=== PATIENT | female | born 1990 | race Caucasian/White ===

== ENCOUNTER 2019-02-20 11:45 | Emergency (ER) | payer BC, OTHER ==
[2019-02-20 11:48] VITALS: BP 116/78; PULSE 73; RESP 16; TEMP 97.4
[2019-02-20 13:05] LABS: Basophils # (A) 0.1 k/uL (0-0.2); Basophils % (A) 1 %; Eosinophils # (A) 0.7 k/uL (0-0.7); Eosinophils % (A) 9 %; HCT 41.6 % (34.0-46.0); Lymphocytes # (A) 3.2 k/uL (1.0-4.8); Lymphocytes % (A) 40 %; MCH 30.7 pg (25.0-35.0); MCHC 33.7 g/dL (31.0-37.0); MCV 91.1 fL (80.0-100.0); Mean Platelet Volume 8.5; Monocytes # (A) 0.3 k/uL (0-1.0); Monocytes % (A) 4 %; Neutrophils # (A) 3.6 k/uL (1.3-7.7); Neutrophils % (A) 44 %; Platelet Count 216 k/uL (150-450); RBC 4.57 m/uL (3.80-5.40); RDW 12.1 % (11.5-15.5)
[2019-02-20] MEDS ORDERED: FLUCONAZOLE 150 MG TAB PO STA (13:12)
[2019-02-20 13:24] LABS: ALT 20 U/L (4-34); AST 27 U/L (14-36); African American GFR (CKD) >90 (>60 ml/min/1.73 sqM); Albumin 4.4 g/dL (3.5-5.0); Alkaline Phosphatase 58 U/L (38-126); Anion Gap 8 mmol/L; Blood Urea Nitrogen 11 mg/dL (7-17); Calcium 9.8 mg/dL (8.4-10.2); Carbon Dioxide 27 mmol/L (22-30); Chloride 106 mmol/L (98-107); Glucose 72 mg/dL (74-99); Non-African American GFR(CKD) >90 (>60 ml/min/1.73 sqM); Potassium 4.2 mmol/L (3.5-5.1); Sodium 141 mmol/L (137-145); Total Bilirubin 0.4 mg/dL (0.2-1.3); Total Protein 7.3 g/dL (6.3-8.2)
--- NOTE | 2019-02-20 13:51 | US ---
EXAMINATION TYPE: Transabdominal DATE OF EXAM: 02/20/2019 1:30 PM COMPARISON: NONE CLINICAL HISTORY: pain. Spotting x 10 days, positive home test, 2, para 1 EXAM PERFORMED: Transabdominal (TA) EXAM MEASUREMENTS: GESTATIONAL AGE / DATING Physician Established: Not established yet Dates by LMP: (4 weeks/6 days) EDC: 10/24/2019 Dates by First Scan: This is 1st scan Dates by Current Scan for: No IUP seen at this time MATERNAL ANATOMY Uterus: 6.1 x 3.8 x 4.2cm, anteverted Right Ovary: 2.2 x 1.2 x 1.9cm Left Ovary: 2.4 x 1.6 x 2.3cm Post CDS / Adnexa: wnl Presence of free fluid: no Presence of corpus luteal cyst: not seen at this time Presence of subchorionic bleed: no GESTATION / SURVEY IUP: No IUP seen at this time Date of LMP: 01/17/2019 Beta HcG (if available): Not available at time of exam IMPRESSION: No intrauterine is identified. If the patient is beta hCG positive differential diagnosis w ould include normal too early to detect, missed , or ectopic . Correlate w ith serial beta hCG and pelvic ultrasound as clinically warranted.
--- NOTE | 2019-02-20 14:36 | ED ---
Female Urogenital HPI - General Chief complaint: Vaginal Bleeding Stated complaint: 5wks preg, bleeding Time Seen by Provider: 02/20/19 12:17 Source: patient Mode of arrival: ambulatory Limitations: no limitations - History of Present Illness Initial comments: 28-year-old female presents today for chief complaint of vaginal bleeding and Prevacid. Patient states she had a positive presents test on February 09. Patient states that her last menstrual period was01/23. Patient states she's been feeling okay no nausea vomiting denies cramping or pain. Patient states she has been spotting for quite some time and that's why she initially took a test she states is brown in nature. Patient states she had more bright red blood today again no pain no back pain and then presents emergency department for evaluation. Patient states she did have a UTI at the end of December. Patient denies any other complaints denies any heavy vaginal bleeding she states she has established OB care an appointment with Dr. Cordoba on March 15. Remaining review of systems negative upon arrival patient appears on the signs of acute distress. - Related Data Home Medications Medication Instructions Recorded Confirmed No Known Home Medications 09/26/13 09/26/13 Allergies Allergy/AdvReac Type Severity Reaction Status Date / Time No Known Allergies Allergy Verified 02/20/19 11:48 Review of Systems ROS Statement: Those systems with pertinent positive or pertinent negative responses have been documented in the HPI. ROS Other: All systems not noted in ROS Statement are negative. Past Medical History Past Medical History: No Reported History History of Any Multi-Drug Resistant Organisms: None Reported Past Surgical History: No Surgical Hx Reported Past Psychological History: No Psychological Hx Reported Smoking Status: Never smoker Past Alcohol Use History: Occasional Past Drug Use History: None Reported General Exam - General Exam Comments Initial Comments: General: The patient is awake and alert, in no distress, and does not appear acutely ill. Eye: +3 mm pupils are equal, round and reactive to light, extra-ocular movements are intact. No nystagmus. There is normal conjunctiva bilaterally. No signs of icterus. Ears, nose, mouth and throat: There are moist mucous membranes and no oral lesions. Neck: The neck is supple, there is no tenderness or JVD. Cardiovascular: There is a regular rate and rhythm. No murmur, rub or gallop is appreciated. Respiratory: Lungs are clear to auscultation, respirations are non-labored, breath sounds are equal. No wheezes, stridor, rales, or rhonchi. Gastrointestinal: Soft, non-distended, non-tender abdomen without masses or organomegaly noted. There is no rebound or guarding present. Pelvic exam normal female hair pattern. No external lesions. Vaginal mucosa pink well rugated small blood clots coming from the cervical small amount of blood in the vaginal vault dark red. No bright red blood. No cervical motion or adnexal tenderness. Musculoskeletal: Normal ROM, no tenderness. Strength 5/5. Sensation intact. Radial pulses equal bilaterally 2+. Neurological: A&O x 3. CN II-XII intact grossly, There are no obvious motor or sensory deficits. Coordination appears grossly intact. Speech is normal. Skin: Skin is warm and dry and no rashes or lesions are noted. Psychiatric: Cooperative, appropriate mood & affect, normal judgment. Limitations: no limitations Course Vital Signs 02/20/19 11:46 Temperature 97.4 F L Pulse Rate 73 Respiratory 16 Rate Blood Pressure 116/78 O2 Sat by Pulse 100 Oximetry Medical Decision Making - Medical Decision Making 28-year-old female presents today for chief complaint of vaginal bleeding and . Mild amount of painless bleeding. No adnexal tenderness on bimanual examination. Hemoglobin stable vital signs stable low hCG at 44. Ultrasound revealed no IUP discussed the frontal diagnoses including ectopic and strict return parameters I encouraged patient to have repeat serum hCG quantitative levels on Thursday and call her primary [employer]ATIVE INTERN to discuss visit today and schedule appropriate follow-up patient is agreeable to prescription for discharge at this time discussed case with any provider Dr. Coats is agreeable care plan - Lab Data Result diagrams: 02/20/19 12:40 02/20/19 12:40 Lab Results 02/20/19 02/20/19 02/20/19 Range/Units 12:40 12:40 12:40 WBC 8.0 (3.8-10.6) k/uL RBC 4.57 (3.80-5.40) m/uL Hgb 14.0 (11.4-16.0) gm/dL Hct 41.6 (34.0-46.0) % MCV 91.1 (80.0-100.0) fL MCH 30.7 (25.0-35.0) pg MCHC 33.7 (31.0-37.0) g/dL RDW 12.1 (11.5-15.5) % Plt Count 216 (150-450) k/uL Neutrophils % 44 % Lymphocytes % 40 % Monocytes % 4 % Eosinophils % 9 % Basophils % 1 % Neutrophils # 3.6 (1.3-7.7) k/uL Lymphocytes # 3.2 (1.0-4.8) k/uL Monocytes # 0.3 (0-1.0) k/uL Eosinophils # 0.7 (0-0.7) k/uL Basophils # 0.1 (0-0.2) k/uL Sodium 141 (137-145) mmol/L Potassium 4.2 (3.5-5.1) mmol/L Chloride 106 (98-107) mmol/L Carbon Dioxide 27 (22-30) mmol/L Anion Gap 8 mmol/L BUN 11 (7-17) mg/dL Creatinine 0.57 (0.52-1.04) mg/dL Est GFR (CKD-EPI)AfAm >90 (>60 ml/min/1.73 sqM) Est GFR (CKD-EPI)NonAf >90 (>60 ml/min/1.73 sqM) Glucose 72 L (74-99) mg/dL Calcium 9.8 (8.4-10.2) mg/dL Total Bilirubin 0.4 (0.2-1.3) mg/dL AST 27 (14-36) U/L ALT 20 (4-34) U/L Alkaline Phosphatase 58 (38-126) U/L Total Protein 7.3 (6.3-8.2) g/dL Albumin 4.4 (3.5-5.0) g/dL HCG, Quant mIU/mL Urine HCG, Qual (Not Detectd) Trichomonas Ag (Rapid) (Negative) Blood Type A Positive Blood Type Recheck No Previous Record Bld Type Recheck Status [facility] ONLY 02/20/19 02/20/19 02/20/19 Range/Units 12:40 13:40 14:40 WBC (3.8-10.6) k/uL RBC (3.80-5.40) m/uL Hgb (11.4-16.0) gm/dL Hct (34.0-46.0) % MCV (80.0-100.0) fL MCH (25.0-35.0) pg MCHC (31.0-37.0) g/dL RDW (11.5-15.5) % Plt Count (150-450) k/uL Neutrophils % % Lymphocytes % % Monocytes % % Eosinophils % % Basophils % % Neutrophils # (1.3-7.7) k/uL Lymphocytes # (1.0-4.8) k/uL Monocytes # (0-1.0) k/uL Eosinophils # (0-0.7) k/uL Basophils # (0-0.2) k/uL Sodium (137-145) mmol/L Potassium (3.5-5.1) mmol/L Chloride (98-107) mmol/L Carbon Dioxide (22-30) mmol/L Anion Gap mmol/L BUN (7-17) mg/dL Creatinine (0.52-1.04) mg/dL Est GFR (CKD-EPI)AfAm (>60 ml/min/1.73 sqM) Est GFR (CKD-EPI)NonAf (>60 ml/min/1.73 sqM) Glucose (74-99) mg/dL Calcium (8.4-10.2) mg/dL Total Bilirubin (0.2-1.3) mg/dL AST (14-36) U/L ALT (4-34) U/L Alkaline Phosphatase (38-126) U/L Total Protein (6.3-8.2) g/dL Albumin (3.5-5.0) g/dL HCG, Quant 42.8 mIU/mL Urine HCG, Qual Not Detected (Not Detectd) Trichomonas Ag (Rapid) Negative (Negative) Blood Type Blood Type Recheck Bld Type Recheck Status Disposition Clinical Impression: Threatened miscarriage, Vaginal bleeding affecting early Disposition: HOME SELF-CARE Condition: Good Instructions (If sedation given, give patient instructions): Threatened Miscarriage (ED) Additional Instructions: Please use medication as discussed. Please follow-up with OBGYN in the next week. Repeat HCG in 2 days. IMMEDIATE RETURN FOR PELVIC PAIN, lightheadedness. Please return to emergency room if the symptoms increase or worsen or for any other concerns. Is patient prescribed a controlled substance at d/c from ED?: No Referrals: Kay Villavicencio III, MD [Primary Care Provider] - 1-2 days Socorro Cordoba MD [STAFF PHYSICIAN] - 1-2 days Time of Disposition: 14:35
[2019-02-22 14:07] LABS: N. gonorrhoeae,PCR Negative (Neg,Equiv); Neisseria Source Vagina
[2019-02-22 14:08] LABS: C. trachomatis,PCR Negative (Neg,Equiv); Chlamydia trachomatis Source Vagina
== END 2019-02-20 14:58 | disposition home or self-care (01) ==
LOC: EC 11:45
DX: O20.0 Threatened abortion (principal); Z3A.01 Less than 8 weeks gestation of pregnancy
CPT/HCPCS: 36415; 76801; 80053; 81025; 84702; 85025; 86900; 86901; 87070; 87491; 87591; 87808; 99284

== ENCOUNTER → 2019-02-24 | Outpatient (CLI) | payer BC, OTHER | END | disposition home or self-care (01) | LOC: LABWHC1 13:04 | PROVIDERS: ATTEND Physician Assistant Medical | DX: O46.91 Antepartum hemorrhage, unspecified, first trimester (principal); Z3A.01 Less than 8 weeks gestation of pregnancy | CPT/HCPCS: 36415; 84702 ==

== ENCOUNTER → 2019-11-08 | Outpatient (CLI) | payer BC, OTHER ==
--- NOTE | 2019-11-09 10:28 | USB ---
Reason for exam: additional evaluation requested from abnormal screening. History: Family history of breast cancer in maternal aunt. Physical Findings: Nurse Summary: patient states right breast has been feeling heavier and more full for about 1 month or so, patient states right breast itchy at times for 1 month, slightly reddened right areola 10-11 o'clock position noted, per patient, she has had bilateral nipple discharge x 1 with expulsion per her OBGYN, denies any other nipple discharge, unsure of color (nurse ts). US Breast RT Right complete breast ultrasound includes all four quadrants, the retroareolar region and axilla. Finding demonstrates ducts seen at 4 o'clock, a 0.6 x 0.3 x 0.3cm lymph node at 9 o'clock, benign intramammary node, a 1.0 x 1.1 x 0.7cm lymph node at the axilla, prominent but nonenlarged benign appearing node in the axilla and duct ectasia at the posterior nipple. These results were verbally communicated with the patient and result sheet given to the patient on 11/08/19. ASSESSMENT: Benign, BI-RAD 2 RECOMMENDATION: Routine screening mammogram of both breasts at age 41. Unless clinical indication to start sooner. Manage on a clinical basis with regard to right nipple discharge. Suspicious discharge that would warrant further evaluation includes clear or bloody discharge localized to a single pore on the nipple. Clinical breast size asymmetry.
== END | disposition home or self-care (01) ==
LOC: RADUSWWP 14:59
PROVIDERS: ATTEND Obstetrics & Gynecology
DX: N64.4 Mastodynia (principal); N64.52 Nipple discharge; L53.8 Other specified erythematous conditions

== ENCOUNTER → 2020-07-11 | Outpatient (CLI) | payer BC, OTHER ==
[2020-07-12 03:20] LABS: HIV 2 AB Non-Reactive (Non-Reactive); HIV AB P24 Non-Reactive (Non-Reactive); HIV P24 AG Non-Reactive (Non-Reactive)
[2020-07-12 04:26] LABS: Follicle Stimulating Hormone 5.9 mIU/mL; Luteinizing Hormone 5.8 mIU/mL; Prolactin 9.6 ng/mL (2.8-29.2)
[2020-07-12 06:07] LABS: Hepatitis B Surface Antigen Non-Reactive (Non-Reactive); Hepatitis C IgG Antibody Non-Reactive (Non-Reactive)
[2020-07-13 10:55] LABS: Act Protein C Resist Interp Negative; Activated Protein C Resistance 2.91 (1.60-4.90)
== END | disposition home or self-care (01) ==
LOC: LABWHC1 15:00
PROVIDERS: ATTEND Obstetrics & Gynecology Reproductive Endocrinology
DX: Z11.4 Encounter for screening for human immunodeficiency virus [HIV] (principal); Z11.59 Encounter for screening for other viral diseases; Z13.0 Encounter for screening for diseases of the blood and blood-forming organs and certain disorders involving the immune mechanism; Z11.3 Encounter for screening for infections with a predominantly sexual mode of transmission; Z13.29 Encounter for screening for other suspected endocrine disorder
CPT/HCPCS: 36415; 82306; 82397; 83001; 83002; 84146; 84443; 85307; 86592; 86762; 86803; 87340; 87390

== ENCOUNTER → 2020-10-02 | Outpatient (CLI) | payer BC ==
[2020-10-02 19:45] LABS: Cardiolipin Ab IgG Interp NEGATIVE (NEGATIVE); Cardiolipin Ab IgM Interp NEGATIVE (NEGATIVE); Cardiolipin IgA Antibody <2.0 U/mL; Cardiolipin IgM Antibody <1.5 U/mL
[2020-10-03 12:05] LABS: Anti-Thrombin III Antigen 92 % (80 - 120)
[2020-10-03 12:12] LABS: APTT 41 Sec(s) (<43); Dilute Russell Viper Venom 39 Sec(s) (<44)
[2020-10-05 11:23] LABS: Protein C (Activity) 107 % (71-138)
[2020-10-05 11:24] LABS: Anti-Thrombin III Activity 108 % (79-109)
== END | disposition home or self-care (01) ==
LOC: LABWHC1 09:19
PROVIDERS: ATTEND Obstetrics & Gynecology Reproductive Endocrinology
DX: N96 Recurrent pregnancy loss (principal)
CPT/HCPCS: 36415; 81240; 81241; 81291; 83090; 85300; 85301; 85303; 85306; 85613; 85730; 86147

== ENCOUNTER → 2021-04-24 | Outpatient (CLI) | payer BC ==
[2021-04-24 20:58] LABS: Varicella zoster IgG Result 2.8 AI
== END | disposition home or self-care (01) ==
LOC: LABWHC1 11:29
PROVIDERS: ATTEND Obstetrics & Gynecology Reproductive Endocrinology
DX: Z01.84 Encounter for antibody response examination (principal); Z01.83 Encounter for blood typing
CPT/HCPCS: 36415; 86787; 86850; 86900; 86901

== ENCOUNTER 2022-03-24 02:35 | Inpatient (IN) | payer BC ==
[2022-03-24] MEDS ORDERED: LIDOCAINE 0.5% (PF) 5 MG/ML (50 ML SDV) SQ PRN (03:50)
[2022-03-24] MEDS ORDERED: TERBUTALINE 1 MG/ML VIAL SQ PRN (03:50)
[2022-03-24] MEDS ORDERED: BUTORPHANOL 1 MG/ML 1 ML VIAL IV PRN (04:04)
[2022-03-24 04:08] LABS: Basophils # (A) 0.1 k/uL (0-0.2); Basophils % (A) 1 %; Eosinophils # (A) 0.4 k/uL (0-0.7); Eosinophils % (A) 4 %; HCT 31.8 % (34.0-46.0); HGB 10.3 gm/dL (11.4-16.0); Lymphocytes # (A) 2.7 k/uL (1.0-4.8); Lymphocytes % (A) 24 %; MCH 28.4 pg (25.0-35.0); MCHC 32.5 g/dL (31.0-37.0); MCV 87.5 fL (80.0-100.0); Mean Platelet Volume 8.3; Monocytes # (A) 0.5 k/uL (0-1.0); Monocytes % (A) 4 %; Neutrophils # (A) 7.4 k/uL (1.3-7.7); Neutrophils % (A) 65 %; Platelet Count 262 k/uL (150-450); RBC 3.63 m/uL (3.80-5.40); RDW 14.5 % (11.5-15.5); WBC 11.4 k/uL (3.8-10.6)
[2022-03-24] MEDS: LACTATED RINGERS 1,000 ML IV SCH ×3 (04:15→10:15)
[2022-03-24] MEDS ORDERED: OXYTOCIN 30 UNITS/500 ML NS 30 UNIT in SALINE 1 500ML.BAG IV SCH ×2 (07:30→12:45)
--- NOTE | 2022-03-24 08:25 | P.HPOB ---
History of Present Illness H&P Date: 03/24/22 This is a 31-year-old 4 para 10-1 woman who is admitted at 39-3/7 weeks gestation with spontaneous rupture of membranes at approximately 1:30 AM. Upon presentation to labor and delivery triage rupture of membranes is confirmed although she is not actively parish. has been complicated by maternal coping infection in the third trimester. testing has been reassuring. Laboratory data: Blood type A+, antibody screen negative, rubella immune, VDRL nonreactive, hepatitis B surface antigen negative, HIV negative, gonorrhea and clinic cultures negative, glucose tolerance testing within normal limits, group B strep negative Obstetric history: Spontaneous miscarriage 2, vacuum assisted vaginal delivery at term in 2014. Review of Systems All systems: negative Past Medical History Past Medical History: No Reported History, Thyroid Disorder History of Any Multi-Drug Resistant Organisms: None Reported Past Surgical History: No Surgical Hx Reported Past Anesthesia/Blood Transfusion Reactions: No Reported Reaction Smoking Status: Never smoker - Past Family History Mother Family Medical History: Congestive Heart Failure (CHF) Father Family Medical History: Cancer Additional Family Medical History / Comment(s): throat cancer Medications and Allergies Home Medications Medication Instructions Recorded Confirmed Type Aspirin [Adult Low Dose Aspirin EC] 81 mg PO DAILY 03/24/22 03/24/22 History Levothyroxine Sodium [Synthroid] 25 mcg PO DAILY 03/24/22 03/24/22 History Vit No.179/Iron/Folic 1 tablet PO DAILY 03/24/22 03/24/22 History [ Tablet] Allergies Allergy/AdvReac Type Severity Reaction Status Date / Time No Known Allergies Allergy Verified 03/24/22 03:01 Exam Vital Signs Temp Pulse Resp BP Pulse Ox 03/24/22 03:40 98.0 F 89 16 139/78 100 03/24/22 02:58 98.8 F 82 16 116/72 99 Intake and Output 03/23/22 03/24/22 03/24/22 22:59 06:59 14:59 Other: # Voids 2 Weight 66.678 kg This is a comfortable, visibly gravid female in no acute distress. Targeted physical exam is performed. The abdomen is gravid, soft and nontender with size appropriate for gestational age. Estimated weight approximately 7 pounds. On pelvic examination the cervix is 5 cm dilated, 60% effaced and the vertex is in the -2 station. Clear fluid is noted. heart tones are category 1 and she is very irregularly parish. Results Result Diagrams: 03/24/22 03:55 Abnormal Lab Results - Last 24 Hours (Table) 03/24/22 Range/Units 03:55 WBC 11.4 H (3.8-10.6) k/uL RBC 3.63 L (3.80-5.40) m/uL Hgb 10.3 L (11.4-16.0) gm/dL Hct 31.8 L (34.0-46.0) % Assessment and Plan (1) Spontaneous rupture of membranes Current Visit: Yes Status: Acute Code(s): [id number] - SNOMED Code(s): 999893588 (2) 39 weeks gestation of Current Visit: Yes Status: Acute Code(s): Z3A.39 - 39 WEEKS GESTATION OF SNOMED Code(s): 44960372 Plan: 31-year-old 4 para 10-1 woman admitted at 39-3/7 weeks gestation with spontaneous rupture of membranes not in active labor. Pitocin augmentation was initiated. She is group B strep negative and Rh+. status is currently reassuring by external monitoring. She may receive an epidural anesthetic upon request for pain control. Anticipate normal spontaneous vaginal delivery. Time with Patient: Less than 30
[2022-03-24] MEDS ORDERED: SODIUM CHLORIDE 0.9% 100 ML BAG ONE (10:17)
[2022-03-24] MEDS ORDERED: fentaNYL (PF) 50 MCG/ML 5 ML AMP ONE (10:17)
[2022-03-24] MEDS ORDERED: ROPIVACAINE 5 MG/ML 20 ML AMPULE ONE (10:17)
[2022-03-24] MEDS ORDERED: diphenhydrAMINE 25 MG CAP PO PRN (12:38)
[2022-03-24] MEDS ORDERED: HYDROCORTISONE 2.5% RECTAL CREAM 30 GM TUBE RECTAL PRN (12:38)
[2022-03-24] MEDS ORDERED: diphenhydrAMINE 50 MG CAP PO PRN (12:38)
[2022-03-24] MEDS ORDERED: ACETAMINOPHEN TAB 325 MG TAB PO PRN (12:38)
[2022-03-24] MEDS ORDERED: BENZOCAINE/MENTHOL SPRAY 1 GM/SPRAY AEROSOL TOPICAL PRN (12:38)
[2022-03-24] MEDS ORDERED: SIMETHICONE 80 MG CHEWABLE PO PRN (12:38)
[2022-03-24] MEDS ORDERED: ZOLPIDEM 5 MG TAB PO PRN (12:38)
[2022-03-24] MEDS ORDERED: diphenhydrAMINE 50 MG/ML 1 ML VIAL IVP PRN ×2 (12:38)
[2022-03-24] MEDS ORDERED: IBUPROFEN 600 MG TAB PO PRN (12:38)
[2022-03-24] MEDS ORDERED: LANOLIN CREAM 5 GM TUBE TOPICAL PRN (12:38)
[2022-03-24] MEDS ORDERED: diphenhydrAMINE ELIXIR 25 MG/10 ML CUP PO PRN (12:38)
--- NOTE | 2022-03-24 12:38 | P.PROBDLV ---
Vaginal Delivery Note - . Vaginal Delivery Note: Lungs: Female in the vertex left occiput anterior position with Apgars of 9 at 1 minute and 9 at 5 minutes. Weight 7 lbs. 0 oz., 3175 g. Intact, three- vessel cord placenta. Thick meconium stained fluid terminal he. Second-degree midline episiotomy. EBL 200 mL's. Delivery summary: This is a 35-year-old 4 para 10-1 woman who presented at 39-3/7 weeks gestation with spontaneous rupture of membranes at approximately 1:30 AM. She presented in labor and delivery and rupture was confirmed. She was not in active labor. Following observation for several hours Pitocin augmentation was initiated. Upon presentation she was 5 cm dilated. She reached complete cervical dilation by approximately 11 AM and commenced pushing. She had an extremely dense epidural anesthetic. She pushed to [facility] the at which time she was repositioned, prepped and draped in the modified Amina position. A second-degree midline episiotomy was cut with the patient's verbal consent. The head then did deliver from the left occiput anterior position. This was followed easily by the anterior and posterior shoulders. There is a large amount of terminal meconium stained fluid. The rest of the was delivered onto the field and the nose and mouth were bulb suctioned. The was placed on the maternal abdomen. Eventually the cord was clamped and cut. The was taken to the warmer for further evaluation where Apgars were 9 at 1 minute and 9 at 5 minutes. The perineum was inspected and a second-degree laceration was noted. This was repaired with 3-0 Vicryl suture in the usual fashion. An intact, three-vessel cord placenta was delivered after an approximately 4 minute third stage of labor. The uterus was massaged and noted to be firm at the level of the umbilicus. The the patient received Pitocin following delivery of the placenta. The rest of the vagina and cervix were inspected and no further lacerations were noted. All counts were correct. Both mother and infant were doing well post delivery in the room.
[2022-03-24] MEDS: SENNOSIDES-DOCUSATE SODIUM 1 EACH TAB PO SCH (20:46)
[2022-03-24] MEDS ORDERED: ACETAMINOPHEN ORAL SUSP (PEDS) 3,840 MG/120 ML BOTTLE PO PRN (21:31)
[2022-03-24] MEDS ORDERED: IBUPROFEN ORAL SUSP 2,400 MG/120 ML BOTTLE PO PRN (22:03)
[2022-03-25 05:37] LABS: Basophils # (A) 0.1 k/uL (0-0.2); Basophils % (A) 0 %; Eosinophils # (A) 0.3 k/uL (0-0.7); Eosinophils % (A) 3 %; HCT 25.6 % (34.0-46.0); Lymphocytes # (A) 2.5 k/uL (1.0-4.8); Lymphocytes % (A) 23 %; MCHC 33.6 g/dL (31.0-37.0); MCV 86.4 fL (80.0-100.0); Mean Platelet Volume 8.8; Monocytes # (A) 0.3 k/uL (0-1.0); Monocytes % (A) 3 %; Neutrophils # (A) 7.5 k/uL (1.3-7.7); Neutrophils % (A) 69 %; Platelet Count 210 k/uL (150-450); RBC 2.96 m/uL (3.80-5.40); RDW 14.8 % (11.5-15.5); WBC 10.8 k/uL (3.8-10.6)
[2022-03-25 05:56] LABS: HGB 8.6 gm/dL (11.4-16.0)
[2022-03-25] MEDS: LACTATED RINGERS 1,000 ML IV SCH (08:28)
--- NOTE | 2022-03-25 12:14 | P.DS ---
Providers Date of admission: 03/24/22 02:57 Expected date of discharge: 03/25/22 Attending physician: Socorro Cordoba Primary care physician: Stated None - Discharge Diagnosis(es) (1) Spontaneous rupture of membranes Current Visit: Yes Status: Acute (2) 39 weeks gestation of Current Visit: Yes Status: Acute (3) Normal spontaneous vaginal delivery Current Visit: Yes Status: Acute (4) Perineal laceration with delivery, second degree Current Visit: Yes Status: Acute Hospital Course: This is a 31-year-old 4 now para 3 woman who was admitted at 39-3/7 weeks gestation with spontaneous rupture of membranes not in active labor. Following admission she eventually received Pitocin augmentation. She received an epidural anesthetic. She reached complete cervical dilation and had an approximately 1 hour 20 minutes second stage of labor to deliver a liveborn female infant over a second-degree midline episiotomy. Apgars were 9 at 1 minute and 9 at 5 minutes and weight was 7 lbs. 0 oz. Her course was unremarkable. By the evening of day 0 she was ambulating and voiding without difficulty. By day #1 she continued to do well. Her lochia was moderate but decreasing. Her pain was controlled with oral pain medications and she was tolerating a general diet. Her vital signs are stable. Her admission hemoglobin was 10.3 and day #1 hemoglobin was 8.6. She is hemodynamically stable with decreasing vaginal bleeding. She is deemed stable for discharge home with routine instructions for care and follow-up. Procedures: Normal spontaneous vaginal delivery Repair of midline episiotomy Patient Condition at Discharge: Good Plan - Discharge Summary New Discharge Prescriptions: Discontinued Aspirin [Adult Low Dose Aspirin EC] 81 mg PO DAILY Levothyroxine Sodium [Synthroid] 25 mcg PO DAILY No Action Vit No.179/Iron/Folic [ Tablet] 1 tablet PO DAILY Discharge Medication List Vit No.179/Iron/Folic [ Tablet] 1 tablet PO DAILY 03/24/22 [History] Follow up Appointment(s)/Referral(s): Socorro Cordoba MD [STAFF PHYSICIAN] - 6 Weeks Activity/Diet/Wound Care/Special Instructions: Follow-up in the office in 6 weeks . Call with any concerning signs or symptoms including heavy vaginal bleeding, severe abdominal pain, fever greater than 100.5, swelling or redness of the lower extremities, foul vaginal discharge, or signs of depression. May use [id number] Tylenol and/or ibuprofen as needed for pain and ice packs to the perineum as needed for pain and swelling. Continue vitamin. Nothing in the vagina for 6 weeks after delivery, specifically no intercourse. Discharge Disposition: HOME SELF-CARE
[2022-03-25 13:37] VITALS: BP 109/71; PULSE 95; RESP 16; TEMP 97.8
[2022-03-25] MEDS: SENNOSIDES-DOCUSATE SODIUM 1 EACH TAB PO SCH (14:25)
== END 2022-03-25 13:50 | disposition home or self-care (01) | DRG 807 ==
LOC: FBPOP 02:35 → 4FBP 02:57
PROVIDERS: ADMIT Obstetrics & Gynecology; ATTEND Obstetrics & Gynecology
PROC: 10E0XZZ Delivery of Products of Conception, External Approach (ICD-10-PCS; principal; 2022-03-24)
PROC: 0W8NXZZ Division of Female Perineum, External Approach (ICD-10-PCS; principal; 2022-03-24)
PROC: 0KQM0ZZ Repair Perineum Muscle, Open Approach (ICD-10-PCS; principal; 2022-03-24)
DX: O42.02 Full-term premature rupture of membranes, onset of labor within 24 hours of rupture (principal); O99.284 Endocrine, nutritional and metabolic diseases complicating childbirth; E07.9 Disorder of thyroid, unspecified; O77.0 Labor and delivery complicated by meconium in amniotic fluid; O70.1 Second degree perineal laceration during delivery; Z79.82 Long term (current) use of aspirin; Z79.890 Hormone replacement therapy; Z86.19 Personal history of other infectious and parasitic diseases; Z3A.39 39 weeks gestation of pregnancy; Z37.0 Single live birth
CPT/HCPCS: 59025; 84112; 85025; 86850; 86900; 86901; 99213

== ENCOUNTER 2023-11-19 22:44 | Observation (INO) | payer BC, OTHER ==
--- NOTE | 2023-11-19 22:59 | ED ---
Abdominal Pain HPI - General Stated Complaint: abd pain Time Seen by Provider: 11/19/23 22:46 Source: patient, EMS Mode of arrival: EMS Limitations: no limitations - History of Present Illness Initial Comments: This patient is a 33-year-old woman who presents to have evaluation of right lower quadrant abdominal pain. The patient states that she is seeing Dr. Jade currently. The patient was told she was suspected of having ectopic . She reportedly received shot of which she believes is methotrexate yesterday at [facility]. The patient was taking shower tonight and felt a pop in the right lower quadrant of the abdomen, had severe pain and she may have had syncopal episode. Patient's reportedly called EMS to transport the patient here. She also reports feeling lightheaded when she stood up. Patient denies vaginal bleeding. MD Complaint: abdominal pain -: hour(s) Location: RLQ Radiation: none Migration to: no migration Severity: moderate Quality: sharp, other (Popping sensation) Consistency: now resolved (partially) Improves With: nothing Worsens With: movement Associated Symptoms: denies other symptoms - Related Data Home Medications Medication Instructions Recorded Confirmed Vit No.179/Iron/Folic 1 tablet PO DAILY 03/24/22 03/24/22 [ Tablet] Previous Rx's Medication Instructions Recorded Acetaminophen Tab [Tylenol] 650 mg PO Q6H PRN #30 tab 11/21/23 Ibuprofen [Motrin] 600 mg PO Q6HR PRN #30 tab 11/21/23 Allergies Allergy/AdvReac Type Severity Reaction Status Date / Time No Known Allergies Allergy Verified 03/24/22 03:01 Review of Systems ROS Statement: Those systems with pertinent positive or pertinent negative responses have been documented in the HPI. ROS Other: All systems not noted in ROS Statement are negative. Constitutional: Denies: fever, chills, weakness Respiratory: Denies: cough, dyspnea Cardiovascular: Reports: as per HPI, syncope. Denies: chest pain, palpitations, edema Gastrointestinal: Reports: as per HPI, abdominal pain. Denies: nausea, vomiting, diarrhea, constipation Genitourinary: Denies: dysuria, frequency, hematuria, discharge, abnormal menses Musculoskeletal: Denies: back pain Skin: Denies: rash Neurological: Denies: headache, weakness, numbness Hematological/Lymphatic: Denies: easy bleeding Past Medical History Past Medical History: No Reported History, Thyroid Disorder History of Any Multi-Drug Resistant Organisms: None Reported Past Surgical History: No Surgical Hx Reported Past Anesthesia/Blood Transfusion Reactions: No Reported Reaction Smoking Status: Never smoker - Past Family History Mother Family Medical History: Congestive Heart Failure (CHF) Father Family Medical History: Cancer Additional Family Medical History / Comment(s): throat cancer General Exam General appearance: alert, in no apparent distress Head exam: Present: atraumatic, normocephalic Eye exam: Present: normal appearance. Absent: scleral icterus, conjunctival injection ENT exam: Present: normal oropharynx Neck exam: Present: normal inspection Respiratory exam: Present: normal lung sounds bilaterally. Absent: respiratory distress, wheezes, rales, rhonchi, stridor, accessory muscle use Cardiovascular Exam: Present: regular rate, normal rhythm, normal heart sounds. Absent: systolic murmur, diastolic murmur, rubs, gallop GI/Abdominal exam: Present: soft, tenderness (Right lower quadrant). Absent: distended, guarding, rebound, rigid, mass, pulsatile mass, hernia Extremities exam: Present: normal inspection, normal capillary refill. Absent: pedal edema, calf tenderness Back exam: Present: normal inspection. Absent: CVA tenderness (R), CVA tenderness (L) Neurological exam: Present: alert Skin exam: Present: warm, dry, intact, normal color. Absent: rash Course Vital Signs 11/19/23 11/20/23 11/20/23 22:51 00:04 00:52 Temperature 97.9 F Pulse Rate 83 83 91 Pulse Rate [ Pulse Oximetery ] Respiratory 19 18 18 Rate Blood Pressure 105/65 100/50 100/59 Blood Pressure [Right Arm] O2 Sat by Pulse 100 100 Oximetry 11/20/23 01:30 Temperature 97.7 F Pulse Rate Pulse Rate [ 92 Pulse Oximetery ] Respiratory 16 Rate Blood Pressure Blood Pressure 93/55 [Right Arm] O2 Sat by Pulse Oximetry Medical Decision Making - Medical Decision Making The patient had ultrasound of the pelvis that I interpreted to show cystic lesion of the ovary suggestive of ectopic and area of fluid collection significant suggestive of hemorrhage Was pt. sent in by a medical professional or institution (, PA, CLAIMS COLLECTOR, urgent care, hospital, or intermediate...) When possible be specific @ -[No] Did you speak to anyone other than the patient for history (EMS, parent, family, police, friend...)? What history was obtained from this source @ -[No] Did you review nursing and triage notes (agree or disagree)? Why? @ -[I reviewed and agree with nursing and triage notes] Were old charts reviewed (outside hosp., previous admission, EMS record, old EKG, old radiological studies, urgent care reports/EKG's, intermediate records)? Report findings @ -[No old charts were reviewed] Differential Diagnosis (chest pain, altered mental status, abdominal pain women, abdominal pain men, vaginal bleeding, weakness, fever, dyspnea, syncope, heada varun, dizziness, GI bleed, back pain, seizure, CVA, palpatations, mental health, musculoskeletal)? @ -[Differential Abdominal Pain Women: Appendicitis, Cholecystitis, diverticulosis, ischemic bowel, pancreatitis, hepatitis, UTI, gastroenteritis, AAA, incarcerated hernia, bowel obstruction, constipation, inflammatory bowel, hepatitis, peptic ulcer disease, splenic infarction, perforated viscus, vulvitis, ovarian torsion, PID, kidney stone, placenta abruption, this is not meant to be an all-inclusive list EKG interpreted by me (3pts min.). @ -[As above] X-rays interpreted by me (1pt min.). @ -[None done] CT interpreted by me (1pt min.). @ -[None done] U/S interpreted by me (1pt. min.). @ -[I interpreted as above What testing was considered but not performed or refused? (CT, X-rays, U/S, labs)? Why? @ -[None] What meds were considered but not given or refused? Why? @ -[None] Did you discuss the management of the patient with other professionals (professionals i.e. , PA, CLAIMS COLLECTOR, lab, RT, psych nurse, aids social worker, downstairs maid, teacher, community development officer, supervisor case loading)? Give summary @ -[Case discussed with admitting physician and treatment recommendations incorporated Was smoking cessation discussed for >3mins.? @ -[No] Was critical care preformed (if so, how long)? @ -[No] Were there social determinants of health that impacted care today? How? (Homelessness, low income, unemployed, alcoholism, drug addiction, transportation, low edu. Level, literacy, decrease access to med. care, penitentiary, rehab)? @ -[No] Was there de-escalation of care discussed even if they declined (Discuss DNR or withdrawal of care, Hospice)? DNR status @ -[No] What co-morbidities impacted this encounter? (DM, HTN, Smoking, COPD, CAD, Cancer, CVA, ARF, Chemo, Hep., AIDS, mental health diagnosis, sleep apnea, morbid obesity)? @ -[None] Was patient admitted / discharged? Hospital course, mention meds given and route, prescriptions, significant lab abnormalities, going to OR and other pertinent info. @ -[Patient is a 33-year-old woman here with ectopic after having received methotrexate injection. The patient having significant pain and there does appear to be some fluid in the pelvis. Patient will be admitted to gynecology service for serial hemoglobins and possibly serial ultrasound Undiagnosed new problem with uncertain prognosis? @ -[No] Drug Therapy requiring intensive monitoring for toxicity (Heparin, Nitro, Insulin, Cardizem)? @ -[No] Were any procedures done? @ -[No] Diagnosis/symptom? @ -[Acute ectopic Acute anemia Near syncopal episode Acute, or Chronic, or Acute on Chronic? @ -[Acute Uncomplicated (without systemic symptoms) or Complicated (systemic symptoms)? @ -[Complicated by near syncopal episode Side effects of treatment? @ -[No] Exacerbation, Progression, or Severe Exacerbation? @ -[No] Poses a threat to life or bodily function? How? (Chest pain, [place], [place], pneumonia, PE, COPD, DKA, ARF, appy, cholecystitis, CVA, Diverticulitis, Homicidal, Suicidal, threat to staff... and all critical care pts) @ -[Yes there is risk of significant hemorrhage/ - Lab Data Result diagrams: 11/21/23 05:50 11/19/23 23:03 Lab Results 11/19/23 11/19/23 11/19/23 Range/Units 23:03 23:03 23:03 WBC 8.5 (3.8-10.6) k/uL RBC 3.46 L (3.80-5.40) m/uL Hgb 10.7 L (11.4-16.0) gm/dL Hct 31.8 L (34.0-46.0) % MCV 91.9 (80.0-100.0) fL MCH 30.9 (25.0-35.0) pg MCHC 33.6 (31.0-37.0) g/dL RDW 12.3 (11.5-15.5) % Plt Count 199 (150-450) k/uL MPV 8.0 Neutrophils % 49 % Lymphocytes % 41 % Monocytes % 2 % Eosinophils % 4 % Basophils % 0 % Neutrophils # 4.2 (1.3-7.7) k/uL Lymphocytes # 3.5 (1.0-4.8) k/uL Monocytes # 0.2 (0-1.0) k/uL Eosinophils # 0.4 (0-0.7) k/uL Basophils # 0.0 (0-0.2) k/uL Sodium 134 L (137-145) mmol/L Potassium 4.8 (3.5-5.1) mmol/L Chloride 110 H (98-107) mmol/L Carbon Dioxide 22 (22-30) mmol/L Anion Gap 2 mmol/L BUN 17 (7-17) mg/dL Creatinine 0.46 L (0.52-1.04) mg/dL Est GFR (CKD-EPI)AfAm >90 (>60 ml/min/1.73 sqM) Est GFR (CKD-EPI)NonAf >90 (>60 ml/min/1.73 sqM) Glucose 110 H (74-99) mg/dL Plasma Lactic Acid Rico 1.0 (0.7-2.0) mmol/L Calcium 8.6 (8.4-10.2) mg/dL Total Bilirubin 0.4 (0.2-1.3) mg/dL AST 25 (14-36) U/L ALT 16 (4-34) U/L Alkaline Phosphatase 38 (38-126) U/L Total Protein 5.9 L (6.3-8.2) g/dL Albumin 3.6 (3.5-5.0) g/dL Amylase 50 (30-110) U/L Lipase 88 (23-300) U/L HCG, Quant 00285.4 mIU/mL Blood Type Blood Type Recheck Bld Type Recheck Status Antibody Screen Spec Expiration Date 11/19/23 Range/Units 23:03 WBC (3.8-10.6) k/uL RBC (3.80-5.40) m/uL Hgb (11.4-16.0) gm/dL Hct (34.0-46.0) % MCV (80.0-100.0) fL MCH (25.0-35.0) pg MCHC (31.0-37.0) g/dL RDW (11.5-15.5) % Plt Count (150-450) k/uL MPV Neutrophils % % Lymphocytes % % Monocytes % % Eosinophils % % Basophils % % Neutrophils # (1.3-7.7) k/uL Lymphocytes # (1.0-4.8) k/uL Monocytes # (0-1.0) k/uL Eosinophils # (0-0.7) k/uL Basophils # (0-0.2) k/uL Sodium (137-145) mmol/L Potassium (3.5-5.1) mmol/L Chloride (98-107) mmol/L Carbon Dioxide (22-30) mmol/L Anion Gap mmol/L BUN (7-17) mg/dL Creatinine (0.52-1.04) mg/dL Est GFR (CKD-EPI)AfAm (>60 ml/min/1.73 sqM) Est GFR (CKD-EPI)NonAf (>60 ml/min/1.73 sqM) Glucose (74-99) mg/dL Plasma Lactic Acid Rico (0.7-2.0) mmol/L Calcium (8.4-10.2) mg/dL Total Bilirubin (0.2-1.3) mg/dL AST (14-36) U/L ALT (4-34) U/L Alkaline Phosphatase (38-126) U/L Total Protein (6.3-8.2) g/dL Albumin (3.5-5.0) g/dL Amylase (30-110) U/L Lipase (23-300) U/L HCG, Quant mIU/mL Blood Type A Positive Blood Type Recheck A Pos Bld Type Recheck Status No Antibody Screen NEGATIVE Spec Expiration Date 11/22/20232302 Disposition Clinical Impression: Ectopic of right ovary, Anemia Disposition: ADMITTED IP TO THIS HOSP Condition: Fair Is patient prescribed a controlled substance at d/c from ED?: No
[2023-11-19 23:12] LABS: Basophils % (A) 0 %; Eosinophils # (A) 0.4 k/uL (0-0.7); Eosinophils % (A) 4 %; HCT 31.8 % (34.0-46.0); HGB 10.7 gm/dL (11.4-16.0); Lymphocytes # (A) 3.5 k/uL (1.0-4.8); Lymphocytes % (A) 41 %; MCH 30.9 pg (25.0-35.0); MCHC 33.6 g/dL (31.0-37.0); MCV 91.9 fL (80.0-100.0); Monocytes # (A) 0.2 k/uL (0-1.0); Monocytes % (A) 2 %; Neutrophils # (A) 4.2 k/uL (1.3-7.7); Neutrophils % (A) 49 %; Platelet Count 199 k/uL (150-450); RBC 3.46 m/uL (3.80-5.40); RDW 12.3 % (11.5-15.5); WBC 8.5 k/uL (3.8-10.6)
[2023-11-19 23:22] LABS: ALT 16 U/L (4-34); AST 25 U/L (14-36); African American GFR (CKD) >90 (>60 ml/min/1.73 sqM); Albumin 3.6 g/dL (3.5-5.0); Alkaline Phosphatase 38 U/L (38-126); Amylase 50 U/L (30-110); Anion Gap 2 mmol/L; Blood Urea Nitrogen 17 mg/dL (7-17); Calcium 8.6 mg/dL (8.4-10.2); Carbon Dioxide 22 mmol/L (22-30); Chloride 110 mmol/L (98-107); Glucose 110 mg/dL (74-99); Lipase 88 U/L (23-300); Non-African American GFR(CKD) >90 (>60 ml/min/1.73 sqM); Potassium 4.8 mmol/L (3.5-5.1); Sodium 134 mmol/L (137-145); Total Bilirubin 0.4 mg/dL (0.2-1.3); Total Protein 5.9 g/dL (6.3-8.2)
--- NOTE | 2023-11-20 00:01 | US ---
EXAM: US First Trimester , Transabdominal and Transvaginal CLINICAL HISTORY: suspected ectopic preg/RLQ pain TECHNIQUE: Real-time transabdominal and transvaginal obstetrical ultrasound of the maternal pelvis and a first trimester with image documentation. Transvaginal imaging was used for better evaluation of the fetus and adnexa. COMPARISON: No relevant prior studies available. FINDINGS: Gestation: No intrauterine gestation identified. Uterus/cervix: The uterus measures 9 x 4.6 x 5.7 cm. The endometrial stripe measures 7.7 mm. No abnormal vascular flow or fluid in the endometrial canal. There is a rounded heterogeneously hypoechoic structure involving the left aspect of the uterine body measuring 8 x 9 x 8 mm. No myometrial mass. Ovaries: The left ovary measures 3.7 x 3 x 2 cm. There is a dominant simple appearing cyst in the left ovary measuring 2.4 x 1.3 x 1.5 cm. No internal architecture identified. There is a heterogeneously hyperechoic mass in the right adnexa measuring 3.7 x 4.9 x 2.7 cm with prominent internal vascular flow. The adjacent right ovary measures 4.4 x 2.6 x 2. 8 cm. Free fluid: Mild free fluid in the pelvic cul-de-sac and adjacent to the right ovary. IMPRESSION: 1. No intrauterine gestation identified. 2. There is a heterogeneously hyperechoic mass in the right adnexa measuring 3.7 x 4.9 x 2.7 cm with prominent internal vascular flow. While no definitive gestational sac identified, findings are highly suspicious for ectopic gestation. 3. Mild free fluid in the pelvic cul-de-sac and adjacent to the right ovary.
[2023-11-20] MEDS ORDERED: NALOXONE 0.4 MG/ML 1 ML VIAL IV PRN (00:17)
[2023-11-20] MEDS ORDERED: ONDANSETRON 4 MG/2 ML VIAL IVP PRN (00:23)
[2023-11-20] MEDS: MORPHINE SULFATE 4 MG/ML SYRINGE IV PRN (00:46)
[2023-11-20] MEDS: SODIUM CHLORIDE 0.9% 1,000 ML IV SCH (00:48)
[2023-11-20 05:46] VITALS: RESP 16
[2023-11-20] MEDS: ACETAMINOPHEN IV (For NPO) 1,000 MG in EMPTY BAG 1 BAG IVPB ONE (06:05)
[2023-11-20 06:13] LABS: HGB 9.5 gm/dL (11.4-16.0); MCH 30.4 pg (25.0-35.0); MCHC 32.8 g/dL (31.0-37.0); MCV 92.8 fL (80.0-100.0); Mean Platelet Volume 8.5; Platelet Count 183 k/uL (150-450); RBC 3.13 m/uL (3.80-5.40); RDW 12.2 % (11.5-15.5); WBC 9.7 k/uL (3.8-10.6)
[2023-11-20] MEDS: KETOROLAC 15 MG/ML 1 ML VIAL IVP PRN (07:42)
--- NOTE | 2023-11-20 08:18 | P.HPOB ---
History of Present Illness H&P Date: 11/20/23 Chief Complaint: ectopic 33-year-old Presented to the emergency room with increased right lower quadrant pain. Patient has recently been treated with methotrexate for an ectopic . Her beta hCG was 36,000. Tumor markers were also drawn as this looks like a cyst within the ovary initially, those tumor markers were negative. Patient was given methotrexate on Thursday, November 17, 2023. She felt a pop last night and then an increased amount of right lower quadrant pain. She also had a presyncopal episode. She came to the ER and bhcg has gone down to 28,000. Hgb last night was 10.7 and now is 9.5. US showed the ectopic and another cyst on the right ovary as well as a cyst on the left. There was mild free fluid in the pelvis. It does not seem to have active bleeding. The patient is fine laying in bed and has discomfort with movement. We talked about how the methotrexate causes an increased amount of pain when it intially starts to work and we could still monitor conservatively. If there is too much pain with movement and she cannot tolerate, may need to perform laparotomy to remove the ectopic and possibly the right ovary. We discussed risks, benefits and alternatives and she and her understand. We will continue observation at this time and if there is an indication, will proceed with surgery. Review of Systems All systems: negative Constitutional: Denies chills, Denies fever Eyes: denies blurred vision, denies pain Ears, nose, mouth and throat: Denies headache, Denies sore throat Cardiovascular: Denies chest pain, Denies shortness of breath Respiratory: Denies cough Gastrointestinal: Reports abdominal pain, Denies diarrhea, Denies nausea, Denies vomiting Genitourinary: Denies dysuria, Denies hematuria Musculoskeletal: Denies myalgias Integumentary: Denies pruritus, Denies rash Neurological: Denies numbness, Denies weakness Psychiatric: Reports anxiety, Denies depression Endocrine: Denies fatigue, Denies weight change Past Medical History Past Medical History: No Reported History, Thyroid Disorder Additional Past Medical History / Comment(s): OB history: 2 vaginal deliveries, 2 miscarriages, hx of needing IVF to get with the second live . History of Any Multi-Drug Resistant Organisms: None Reported Past Surgical History: No Surgical Hx Reported Past Anesthesia/Blood Transfusion Reactions: No Reported Reaction Past Psychological History: No Psychological Hx Reported Smoking Status: Never smoker Past Alcohol Use History: Occasional Past Drug Use History: None Reported - Past Family History Mother Family Medical History: Congestive Heart Failure (CHF) Father Family Medical History: Cancer Additional Family Medical History / Comment(s): throat cancer Medications and Allergies Home Medications Medication Instructions Recorded Confirmed Type Vit No.179/Iron/Folic 1 tablet PO DAILY 03/24/22 03/24/22 History [ Tablet] Allergies Allergy/AdvReac Type Severity Reaction Status Date / Time No Known Allergies Allergy Verified 03/24/22 03:01 Exam Osteopathic Statement: *. No significant issues noted on an osteopathic structural exam other than those noted in the History and Physical/Consult. Vital Signs Temp Pulse Pulse Resp BP BP Pulse Ox 11/20/23 06:02 98.0 F 84 16 98/58 11/20/23 04:05 97.8 F 97 16 96/87 11/20/23 03:15 74 16 88/50 11/20/23 02:20 97 16 96/56 11/20/23 01:30 97.7 F 92 16 93/55 11/20/23 00:52 91 18 100/59 100 11/20/23 00:04 83 18 100/50 100 11/19/23 22:51 97.9 F 83 19 105/65 Intake and Output 11/19/23 11/20/23 11/20/23 22:59 06:59 14:59 Other: # Voids 1 Weight 56.699 kg 56.699 kg Heart: Regular rate and rhythm Lungs: Clear to auscultation bilaterally Abdomen: Soft, tenderness is limited to the right lower quadrant, no rebound or rigidity, no distention and no radiation of pain Extremities: Negative Homans sign Results Result Diagrams: 11/20/23 04:30 11/19/23 23:03 Abnormal Lab Results - Last 24 Hours (Table) 11/19/23 11/19/23 11/20/23 Range/Units 23:03 23:03 04:30 RBC 3.46 L 3.13 L (3.80-5.40) m/uL Hgb 10.7 L 9.5 L (11.4-16.0) gm/dL Hct 31.8 L 29.0 L (34.0-46.0) % Sodium 134 L (137-145) mmol/L Chloride 110 H (98-107) mmol/L Creatinine 0.46 L (0.52-1.04) mg/dL Glucose 110 H (74-99) mg/dL Total Protein 5.9 L (6.3-8.2) g/dL Assessment and Plan (1) Ectopic of right ovary Current Visit: Yes Status: Acute Code(s): O00.201 - RIGHT OVARIAN WITHOUT INTRAUTERINE SNOMED Code(s): 66287483666050384 Plan: 1. monitor pain and hgb
[2023-11-20 13:51] LABS: HCT 30.8 % (34.0-46.0); HGB 10.1 gm/dL (11.4-16.0); MCH 30.6 pg (25.0-35.0); MCHC 32.8 g/dL (31.0-37.0); MCV 93.5 fL (80.0-100.0); Mean Platelet Volume 7.8; Platelet Count 185 k/uL (150-450); RDW 12.3 % (11.5-15.5); WBC 6.6 k/uL (3.8-10.6)
[2023-11-20] MEDS ORDERED: ACETAMINOPHEN TAB 500 MG TAB PO PRN (14:06)
[2023-11-20] MEDS: IBUPROFEN 600 MG TAB PO PRN (14:32)
[2023-11-20] MEDS: HYDROmorphone 1 MG/ML 1 ML SYRINGE IVP STA (22:28)
[2023-11-21 01:25] VITALS: BP 99/63; PULSE 106; TEMP 97.7
[2023-11-21 06:23] LABS: Basophils % (A) 1 %; Eosinophils # (A) 0.5 k/uL (0-0.7); Eosinophils % (A) 7 %; HCT 27.4 % (34.0-46.0); HGB 9.3 gm/dL (11.4-16.0); Lymphocytes # (A) 2.9 k/uL (1.0-4.8); Lymphocytes % (A) 40 %; MCH 31.5 pg (25.0-35.0); MCHC 34.1 g/dL (31.0-37.0); MCV 92.3 fL (80.0-100.0); Mean Platelet Volume 8.7; Monocytes # (A) 0.2 k/uL (0-1.0); Monocytes % (A) 2 %; Neutrophils # (A) 3.5 k/uL (1.3-7.7); Neutrophils % (A) 49 %; Platelet Count 147 k/uL (150-450); RBC 2.96 m/uL (3.80-5.40); RDW 12.9 % (11.5-15.5); WBC 7.2 k/uL (3.8-10.6)
--- NOTE | 2023-11-21 09:17 | P.DS ---
Providers Date of admission: 11/20/23 00:30 Expected date of discharge: 11/21/23 Attending physician: Larissa Jade Primary care physician: Marcos Goss [place] [facility] Course: Ms. Levine is a 33 year old who presented to the emergency room with increased right lower quadrant pain. She was treated with methotrexate for an ectopic on 11/17/23. Her beta hCG was 36,000 on the day of MTX administration. Tumor markers were also drawn and negative. She felt a pop on the evening of 11/18 and then an increased amount of right lower quadrant pain. She also had a presyncopal episode. She came to the ER and bhcg had gone down to 28,000 on 11/18. US showed the ectopic and another cyst on the right ovary as well as a cyst on the left. There was mild free fluid in the pelvis. Hgb has been stable throughout admission. The patient's pain has improved substantially, she now rates her pain 4/10. She is ambulating more easily. The patient will be discharged home today with a plan for repeat beta-HCG draw on 11/23 and follow up appointment with Dr. Jade on 11/24. She will go home with a prescription for Motrin and Tylenol. All questions are answered. Assessment: 33 year old with resolving tubal ectopic s/p MTX Patient Condition at Discharge: Fair Plan - Discharge Summary New Discharge Prescriptions: New Ibuprofen [Motrin] 600 mg PO Q6HR PRN #30 tab PRN Reason: Mild Pain (Scale 1 To 3) Acetaminophen Tab [Tylenol] 650 mg PO Q6H PRN #30 tab PRN Reason: Mild Pain (Scale 1 To 3) No Action Vit No.179/Iron/Folic [ Tablet] 1 tablet PO DAILY Discharge Medication List Vit No.179/Iron/Folic [ Tablet] 1 tablet PO DAILY 03/24/22 [History] Acetaminophen Tab [Tylenol] 650 mg PO Q6H PRN #30 tab 11/21/23 [Rx] Ibuprofen [Motrin] 600 mg PO Q6HR PRN #30 tab 11/21/23 [Rx] Follow up Appointment(s)/Referral(s): Marcos Goss DO [Primary Care Provider] - 1-2 days Larissa Jade DO [Doctor of Osteopathic Medicine] - 11/25/23 Patient Instructions/Handouts: Ectopic (DC) Discharge Disposition: HOME SELF-CARE
== END 2023-11-21 11:09 | disposition home or self-care (01) ==
LOC: EC 22:44 → 4FBP 11-20 00:30
PROVIDERS: ADMIT Obstetrics & Gynecology; ATTEND Obstetrics & Gynecology
DX: O00.201 Right ovarian pregnancy without intrauterine pregnancy (principal); N83.201 Unspecified ovarian cyst, right side
CPT/HCPCS: 76801; 76817; 80053; 82150; 83605; 83690; 84702; 85025; 85027; 86850; 86900; 86901; 96361; 96374; 96375; 99285

== ENCOUNTER → 2023-11-24 | Outpatient (CLI) | payer OTHER | END | disposition home or self-care (01) | LOC: LABWHC1 15:55 | PROVIDERS: ATTEND Obstetrics & Gynecology | DX: O00.90 Unspecified ectopic pregnancy without intrauterine pregnancy (principal) | CPT/HCPCS: 36415; 84702 ==

== ENCOUNTER → 2024-06-02 | Outpatient (CLI) | payer OTHER ==
[2024-06-02 15:16] LABS: Basophils # (A) 0.08 X 10*3/uL (0.00-0.10); Basophils % (A) 1.3 %; Eosinophils # (A) 0.73 X 10*3/uL (0.04-0.35); Eosinophils % (A) 12.2 %; HCT 39.4 % (37.2-46.3); HGB 12.3 g/dL (12.0-15.0); Lymphocytes # (A) 3.11 X 10*3/uL (0.90-5.00); Lymphocytes % (A) 51.9 %; MCH 28.6 pg (27.0-32.0); MCHC 31.2 g/dL (32.0-37.0); MCV 91.6 FL (80.0-97.0); Mean Platelet Volume 10.7 FL (9.5-12.2); Monocytes # (A) 0.28 X 10*3/uL (0.20-1.00); Monocytes % (A) 4.7 %; NRBC Per 100 WBC 0 X 10*3/uL (0.00-0.01); Neutrophils # (A) 1.78 X 10*3/uL (1.80-7.70); Neutrophils % (A) 29.7 %; Platelet Count 225 X 10*3/uL (140-440); RDW 13.4 % (11.5-14.5); WBC 5.99 X 10*3/uL (4.50-10.00)
[2024-06-02 15:36] LABS: ALT 16 U/L (8-44); AST 20 U/L (13-35); Albumin 4.2 g/dL (3.8-4.9); Albumin/Globulin Ratio 1.91 Ratio (1.60-3.17); Alkaline Phosphatase 64 U/L (41-126); BUN/Creat Ratio 17.33 Ratio (12.00-20.00); Blood Urea Nitrogen 10.4 mg/dL (9.0-27.0); Calcium 9.1 mg/dL (8.7-10.3); Carbon Dioxide 22.2 mmol/L (21.6-31.8); Chloride 106 mmol/L (96-109); Globulin 2.2 g/dL (1.6-3.3); Glucose 71 mg/dL (70-110); Sodium 142 mmol/L (135-145); Total Bilirubin 0.2 mg/dL (0.3-1.2); Total Protein 6.4 g/dL (6.2-8.2)
== END | disposition home or self-care (01) ==
LOC: LABWHC1 10:31
PROVIDERS: ATTEND Family Medicine
DX: R10.9 Unspecified abdominal pain (principal)
CPT/HCPCS: 36415; 80053; 85025

== ENCOUNTER 2024-07-12 10:37 | Day surgery (SDC) | payer OTHER ==
[2024-07-12 12:17] VITALS: TEMP 97.8
[2024-07-12] MEDS: LACTATED RINGERS 1,000 ML IV SCH (12:17)
[2024-07-12] MEDS: IV FLUID CONTINUATION 1,000 ML IV ONE (12:17)
[2024-07-12] MEDS: LIDOCAINE 1% (10MG/ML) FOR IV START INTRADERMA PRN (12:17)
[2024-07-12] MEDS: ONDANSETRON 4 MG/2 ML VIAL IVP PRN (12:30)
[2024-07-12 12:34] LABS: Glucose,Whole Blood 98 mg/dL (70-110)
[2024-07-12] MEDS ORDERED: LIDOCAINE 2% (PF) 20 MG/ML 5 ML VIAL ONE (12:35)
[2024-07-12] MEDS ORDERED: PROPOFOL 10 MG/ML 20 ML VIAL IV ONE (12:35)
[2024-07-12 13:15] VITALS: BP 102/67; PULSE 73; RESP 18
--- NOTE | 2024-07-12 13:26 | P.PCN ---
Date of Procedure: 07/12/24 Procedure(s) Performed: BRIEF HISTORY: Patient is a 34-year-old, pleasant, white female scheduled for an upper endoscopy as a part of evaluation of GERD, heartburn and family history of esophageal cancer. PROCEDURE PERFORMED: Esophagogastroduodenoscopy with biopsy. PREOPERATIVE DIAGNOSIS: Longstanding history of GERD. IV sedation per anesthesia. PROCEDURE: After informed consent was obtained, the patient was brought into the endoscopy unit. IV sedation was administered by Anesthesia under continuous monitoring. Initially the Olympus GIF-140 video endoscope was inserted into the mouth. Esophagus intubated with some difficulty. There was evidence of proximal cervical esophageal stricture and the scope was gently advanced through the stricture which caused dilation. The scope was gradually advanced into the stomach and duodenum and carefully examined. The bulb and the second part of the duodenum appeared normal. The scope at this time was withdrawn to the stomach, adequately insufflated with air, and upon careful examination, mucosa of the antrum, and mild patchy areas of erythema consistent with gastritis and biopsies were done in this area. Mucosa of the body, cardia and the fundus appeared normal. The scope was then withdrawn into the esophagus. There was a moderate- sized hiatal hernia noted. The GE junction was located at 35 cm from the incisors. Moderate size hiatal hernia noted. In the distal esophagus revealed superficial erosions identified. The entire length of the esophagus had multiple superficial mucosal rings with thickened esophageal folds suspicious for eosinophilic esophagitis and biopsies were done from mid and distal esophagus. The proximal cervical esophagus was carefully examined and there was some mucosal tear noted at the site of dilation with the passage of the scope which was at 17 cm from the incisors. The patient tolerated the procedure well. IMPRESSION: 1. Proximal cervical esophageal stricture that was dilated with the passage of the scope. 2. Multiple superficial mucosal rings and thickened esophageal folds involving the entire esophagus suspicious for eosinophilic esophagitis status post multiple biopsies. 3 moderate-sized hiatal hernia. RECOMMENDATIONS: The findings of this examination were discussed with the patie nt as well as her family. She was advised to be on clear liquids for today. Continue with Protonix 40 mg daily and follow antireflux measures. Follow-up in the office in 2 weeks..
== END 2024-07-12 13:45 | disposition home or self-care (01) ==
LOC: ORWHC2ENDO 10:37
PROVIDERS: ATTEND Internal Medicine Gastroenterology
DX: K29.50 Unspecified chronic gastritis without bleeding (principal); K21.00 Gastro-esophageal reflux disease with esophagitis, without bleeding; K22.2 Esophageal obstruction; K44.9 Diaphragmatic hernia without obstruction or gangrene; E03.9 Hypothyroidism, unspecified; F41.9 Anxiety disorder, unspecified; Z79.899 Other long term (current) drug therapy; Z80.0 Family history of malignant neoplasm of digestive organs
CPT/HCPCS: 81025; 88305; 43239; J2405; J2704; J2003